=== PATIENT | female | born 1985 | race Caucasian/White ===

== ENCOUNTER → 2018-06-29 | Outpatient (REF) | LOC: M LAB REF 10:52 | PROVIDERS: ATTEND Obstetrics & Gynecology Reproductive Endocrinology | DX: Z00.00 Encounter for general adult medical examination without abnormal findings (principal) ==

== ENCOUNTER → 2019-02-18 | Outpatient (REF) | payer OTHER ==
[2019-02-20 15:01] LABS: HPV HYBRID CAPTURE II Negative (Negative)
== END ==
LOC: M LAB REF 13:23
PROVIDERS: ATTEND Advanced Practice Midwife
DX: Z12.4 Encounter for screening for malignant neoplasm of cervix (principal)
CPT/HCPCS: 87624; G0123

== ENCOUNTER → 2020-02-10 | Outpatient (REF) ==
[2020-02-11 15:06] LABS: PROGESTERONE 56.6 NG/ML
== END ==
LOC: M LAB REF 16:15
PROVIDERS: ATTEND Obstetrics & Gynecology Reproductive Endocrinology
DX: Z00.00 Encounter for general adult medical examination without abnormal findings (principal)

== ENCOUNTER → 2020-02-14 | Outpatient (REF) | LOC: M LAB LCGH 09:49 | PROVIDERS: ATTEND Obstetrics & Gynecology Reproductive Endocrinology | DX: Z00.00 Encounter for general adult medical examination without abnormal findings (principal) ==

== ENCOUNTER → 2020-10-30 | Outpatient (REF) | LOC: M LAB LCGH 10:03 | DX: Z00.00 Encounter for general adult medical examination without abnormal findings (principal) ==

== ENCOUNTER → 2025-03-08 | Outpatient (CLI) | payer OTHER ==
[~2025-03-08] MED LIST: LIDO30CR18 TOP; MONT10TA97; ONDA-84 PO; PARO20TA3; PROC10TA5 PO; VITAMIN B GUMMIES PO; [UNRECOGNIZED DRUG - OTHER] PO
== END ==
LOC: M ONCM 10:10
PROVIDERS: ATTEND Dietitian, Registered
DX: C50.912 Malignant neoplasm of unspecified site of left female breast (principal); Z17.0 Estrogen receptor positive status [ER+]; Z17.21 Progesterone receptor positive status; Z17.32 Human epidermal growth factor receptor 2 negative status; Z71.3 Dietary counseling and surveillance; Z90.13 Acquired absence of bilateral breasts and nipples; Z68.27 Body mass index [BMI] 27.0-27.9, adult